=== PATIENT | male | born 1985 | race Caucasian/White ===

== ENCOUNTER 2017-03-26 01:10 | Emergency (ER) | payer BC ==
[2017-03-26] MEDS ORDERED: Ciprofloxacin 500 MG Tab ONE (01:15)
[2017-03-26] MEDS ORDERED: Acetaminophen/HYDROcodone 325-5 MG Tab ONE (01:15)
[2017-03-26 05:20] VITALS: BP 155/101
--- NOTE | 2017-03-26 08:26 | EDM.PDOC ---
ED HPI GENERAL MEDICAL PROBLEM - General Chief Complaint: General Stated Complaint: possible kidney stones Time Seen by Provider: 03/26/17 01:40 Source of Information: Reports: Patient History Limitations: Reports: No Limitations - History of Present Illness INITIAL COMMENTS - FREE TEXT/NARRATIVE: This is a 31yo M with history of renal stones 5 years ago but has not been in clinic since here for complaints of right groin pain. Patient states the pain is sharp 9-10/10 pain but occurs occasionally. It has been present for a few days and now it worse and more frequent. The pain comes and goes with certain movements and when lying still as well. He denies urinating since Sunday but does not feel any pressure or fullness. He denies any fever or chills and denies other health concerns. No chest pain, no sob, no diaphoresis, no weakness. Duration: Day(s):, Intermittent, Recurring Location: Reports: Other (right groin) Right Groin Pain Score (Numeric/FACES): 7 - Related Data Allergies Allergy/AdvReac Type Severity Reaction Status Date / Time No Known Allergies Allergy Verified 03/26/17 05:17 Home Meds: Home Meds NK [No Known Home Meds] 03/26/17 [History] Past Medical History Genitourinary History: Reports: Renal Calculus Social & Family History - Family History Family Medical History: Noncontributory - Tobacco Use Smoking Status *Q: Never Smoker Second Hand Smoke Exposure: No - Caffeine Use Caffeine Use: Reports: Soda - Recreational Drug Use Recreational Drug Use: No ED ROS GENERAL - Review of Systems Review Of Systems: ROS reveals no pertinent complaints other than HPI. ED EXAM, GENERAL - Physical Exam Exam: See Below Free Text/Narrative:: Patient does rest and is relaxed but will have short bouts of pain and then relief. Patient's testicle palpated with no pain and was positive for Prehn's sign. Palpation of the epididymis was painful and reproducible. Testicle was free and hanging low. Portable U/S used and no abnormalities noted of the testicle or vessels. Testicle was not enlarged or warm to touch. Pain was illicited with touch specifically of the epididymitis. No palpable pain elsewhere. Patient did state he had right lower back pain but that was not reproducible. The groin pain was isolated to the epididymis. Exam Limited By: No Limitations General Appearance: Alert, WD/WN, Moderate Distress Course - Vital Signs Last Recorded V/S: Last Vital Signs Temp 35.9 C 03/26/17 01:20 Pulse 109 H 03/26/17 01:20 Resp 20 03/26/17 01:20 BP 155/101 H 03/26/17 01:20 Pulse Ox 99 03/26/17 01:20 Departure - Departure Time of Disposition: 02:15 Disposition: Home, Self-Care 01 Condition: Good Clinical Impression: Epididymitis with no abscess - Discharge Information Referrals: PCP,None [Primary Care Provider] - Forms: ED Department Discharge - Problem List Review Problem List Initiated/Reviewed/Updated: Yes - Assessment/Plan Plan: Counseled on very close monitoring of symptoms. Discussed epididymitis. Discussed testicular torsion and what to monitor and if any such symptoms for immediate return to ER for recheck. Patient placed on cipro and hydrocodone. Discussed care and f/u in clinic in 1-2 days for recheck or as needed if symptoms persist. Patient agrees with plan and close f/u.
== END 2017-03-26 02:05 | disposition home or self-care (01) ==
LOC: LB.ED 01:10
DX: N45.1 Epididymitis (principal)
CPT/HCPCS: 99283; A9270

== ENCOUNTER 2024-12-27 11:37 | Emergency (ER) | payer BC ==
[2024-12-27 12:04] VITALS: PULSE 83
[2024-12-27 12:53] VITALS: BP 160/93
== END 2024-12-27 12:45 | disposition home or self-care (01) ==
LOC: LB.ED 11:37
DX: J45.41 Moderate persistent asthma with (acute) exacerbation (principal); Z79.899 Other long term (current) drug therapy; Z79.51 Long term (current) use of inhaled steroids
CPT/HCPCS: 94640; 99284; A9270-GY; J7512